=== PATIENT | male | born 1940 | race Caucasian/White ===

== ENCOUNTER 2019-09-11 12:02 | Outpatient (RCR) | payer OTHER, SELFPAY ==
[2019-09-11 14:07] VITALS: BMI 33.6
== END 2019-11-30 08:01 | disposition home or self-care (01) ==
LOC: ANHWOC 12:02
PROVIDERS: PCP Family Medicine; Visit Provider Family Medicine
DX: I87.2 Venous insufficiency (chronic) (peripheral) (principal)
CPT/HCPCS: 99213; G0463